=== PATIENT | female | born 1980 | race American Indian/Alaskan Native ===

== ENCOUNTER 2019-12-03 02:26 | Emergency (ER) | payer MEDICAID ==
[2019-12-03] MEDS ORDERED: SODIUM CHLORIDE 0.9% 500 ML 500 ML IV ONE (02:32)
[2019-12-03] MEDS ORDERED: ACETAMINOPHEN 500 MG TAB PO STA (02:33)
[2019-12-03 03:18] LABS: Basophils % (Auto) 0.7 % (0.0-1.8); Eosinophils % (Auto) 0.1 % (0.0-4.3); Hematocrit 38.2 % (30.3-42.9); Hemoglobin 13.1 gm/dl (10.1-14.3); Lymphocytes # (Auto) 0.3 K/mm3 (1.2-5.4); Lymphocytes % (Auto) 6.7 % (13.4-35.0); Mean Corpuscular HGB Conc 34 % (30-34); Mean Corpuscular Volume 86 fl (79-97); Monocytes # (Auto) 0.6 K/mm3 (0.0-0.8); Monocytes % (Auto) 11.3 % (0.0-7.3); Platelet Count 154 K/mm3 (140-440); Red Blood Count 4.47 M/mm3 (3.65-5.03); Red Cell Distribution Width 14.6 % (13.2-15.2)
[2019-12-03 03:25] LABS: INR 1.08 (0.87-1.13)
[2019-12-03 03:28] LABS: Alanine Aminotransferase 9 units/L (7-56); Albumin 4.7 g/dL (3.9-5); BUN/Creatinine Ratio 10; Blood Urea Nitrogen 8 mg/dL (7-17); Calcium 9.2 mg/dL (8.4-10.2); Hemolysis Index 2
--- NOTE | 2019-12-03 03:53 | XRay Report ---
CHEST 1 VIEW INDICATION: possible Sepsis. COMPARISON: None. FINDINGS: Support devices: None. Heart: Normal. Lungs/Pleura: No acute pulmonary or pleural findings. IMPRESSION: 1. No acute findings. Signer Name: Rodolfo Peralta MD Signed: 12/03/2019 3:49 AM Workstation Name: [id number]
--- NOTE | 2019-12-03 04:05 | Emergency Department Report ---
ED General Adult HPI - General Chief complaint: Fever Stated complaint: HEADACHE W/COUGH BODYACHES Time Seen by Provider: 12/03/19 03:25 Source: patient Mode of arrival: Ambulatory Limitations: No Limitations - History of Present Illness Initial comments: Patient is a 38-year-old F [place] female with no significant past medical history who is complaining of 1 day of productive cough fevers and chills. Patient states that she has been sick for the last day. Cough is productive of clear to yellow sputum. Patient is some mild shortness of breath associated with the cough. Patient states the body aches are General and 8 out of 10 in severity. Patient states she feels as though her heart is racing Severity scale (0 -10): 10 - Related Data Previous Rx's Medication Instructions Recorded Last Taken Type Fluticasone [Flonase] 1 spray NS QDAY #1 bottle 12/03/19 Unknown Rx guaiFENesin/CODEINE [Robitussin AC] 5 ml PO Q6HR PRN #100 oral.liqd 12/03/19 Unknown Rx predniSONE [Deltasone] 20 mg PO QDAY #5 tab 12/03/19 Unknown Rx Allergies Allergy/AdvReac Type Severity Reaction Status Date / Time No Known Allergies Allergy Verified 02/27/14 01:40 ED Review of Systems ROS: Stated complaint: HEADACHE W/COUGH BODYACHES Other details as noted in HPI Comment: All other systems reviewed and negative ED Past Medical Hx - Past Medical History Previous Medical History?: No - Surgical History Past Surgical History?: No - Social History Smoking Status: Never Smoker Substance Use Type: None - Medications Home Medications: Home Medications Medication Instructions Recorded Confirmed Last Taken Type Fluticasone [Flonase] 1 spray NS QDAY #1 bottle 12/03/19 Unknown Rx guaiFENesin/CODEINE [Robitussin AC] 5 ml PO Q6HR PRN #100 oral.liqd 12/03/19 Unknown Rx predniSONE [Deltasone] 20 mg PO QDAY #5 tab 12/03/19 Unknown Rx ED Physical Exam - General Limitations: No Limitations General appearance: alert, in no apparent distress - Head Head exam: Present: atraumatic, normocephalic - Eye Eye exam: Present: normal appearance - ENT ENT exam: Present: mucous membranes moist - Neck Neck exam: Present: normal inspection - Respiratory Respiratory exam: Present: rhonchi. Absent: respiratory distress, wheezes, rales - Cardiovascular Cardiovascular Exam: Present: regular rate, normal rhythm, tachycardia. Absent: normal heart sounds, systolic murmur, diastolic murmur, rubs, gallop - GI/Abdominal GI/Abdominal exam: Present: soft, normal bowel sounds. Absent: distended, tende rness, guarding, rebound - Extremities Exam Extremities exam: Present: normal inspection - Back Exam Back exam: Present: normal inspection - Neurological Exam Neurological exam: Present: alert, oriented X3 - Psychiatric Psychiatric exam: Present: normal affect, normal mood - Skin Skin exam: Present: warm, dry, intact, normal color. Absent: rash ED Course Vital Signs 12/03/19 12/03/19 12/03/19 02:28 03:05 03:15 Temperature 102.5 F H Pulse Rate 135 H 108 H Respiratory 18 20 Rate Blood Pressure 152/85 127/83 O2 Sat by Pulse 96 97 97 Oximetry 12/03/19 12/03/19 03:30 03:39 Temperature 99.5 F Pulse Rate 107 H Respiratory 14 Rate Blood Pressure 118/60 O2 Sat by Pulse 97 Oximetry ED Medical Decision Making - Lab Data Result diagrams: 12/03/19 02:49 12/03/19 02:49 Lab Results 12/03/19 12/03/19 12/03/19 Range/Units 02:49 02:49 02:49 WBC 5.0 (4.5-11.0) K/mm3 RBC 4.47 (3.65-5.03) M/mm3 Hgb 13.1 (10.1-14.3) gm/dl Hct 38.2 (30.3-42.9) % MCV 86 (79-97) fl MCH 29 (28-32) pg MCHC 34 (30-34) % RDW 14.6 (13.2-15.2) % Plt Count 154 (140-440) K/mm3 Lymph % (Auto) 6.7 L (13.4-35.0) % [place] % (Auto) 11.3 H (0.0-7.3) % Eos % (Auto) 0.1 (0.0-4.3) % Baso % (Auto) 0.7 (0.0-1.8) % Lymph # 0.3 L (1.2-5.4) K/mm3 [place] # 0.6 (0.0-0.8) K/mm3 Eos # 0.0 (0.0-0.4) K/mm3 Baso # 0.0 (0.0-0.1) K/mm3 Seg Neutrophils % 81.2 H (40.0-70.0) % Seg Neutrophils # 4.1 (1.8-7.7) K/mm3 PT 14.1 (12.2-14.9) Sec. INR 1.08 (0.87-1.13) VBG pH (7.320-7.420) Sodium 140 (137-145) mmol/L Potassium 3.3 L (3.6-5.0) mmol/L Chloride 101.4 (98-107) mmol/L Carbon Dioxide 25 (22-30) mmol/L Anion Gap 17 mmol/L BUN 8 (7-17) mg/dL Creatinine 0.8 (0.7-1.2) mg/dL Estimated GFR > 60 ml/min BUN/Creatinine Ratio 10 % Glucose 123 H (65-100) mg/dL Lactic Acid (0.7-2.0) mmol/L Calcium 9.2 (8.4-10.2) mg/dL Total Bilirubin 1.10 (0.1-1.2) mg/dL AST 18 (5-40) units/L ALT 9 (7-56) units/L Alkaline Phosphatase 47 (35-129) units/L Total Protein 7.7 (6.3-8.2) g/dL Albumin 4.7 (3.9-5) g/dL Albumin/Globulin Ratio 1.6 % HCG, Qual (Negative) 12/03/19 12/03/19 12/03/19 Range/Units 02:49 02:49 02:49 WBC (4.5-11.0) K/mm3 RBC (3.65-5.03) M/mm3 Hgb (10.1-14.3) gm/dl Hct (30.3-42.9) % MCV (79-97) fl MCH (28-32) pg MCHC (30-34) % RDW (13.2-15.2) % Plt Count (140-440) K/mm3 Lymph % (Auto) (13.4-35.0) % [place] % (Auto) (0.0-7.3) % Eos % (Auto) (0.0-4.3) % Baso % (Auto) (0.0-1.8) % Lymph # (1.2-5.4) K/mm3 [place] # (0.0-0.8) K/mm3 Eos # (0.0-0.4) K/mm3 Baso # (0.0-0.1) K/mm3 Seg Neutrophils % (40.0-70.0) % Seg Neutrophils # (1.8-7.7) K/mm3 PT (12.2-14.9) Sec. INR (0.87-1.13) VBG pH 7.347 (7.320-7.420) Sodium (137-145) mmol/L Potassium (3.6-5.0) mmol/L Chloride (98-107) mmol/L Carbon Dioxide (22-30) mmol/L Anion Gap mmol/L BUN (7-17) mg/dL Creatinine (0.7-1.2) mg/dL Estimated GFR ml/min BUN/Creatinine Ratio % Glucose (65-100) mg/dL Lactic Acid 1.60 (0.7-2.0) mmol/L Calcium (8.4-10.2) mg/dL Total Bilirubin (0.1-1.2) mg/dL AST (5-40) units/L ALT (7-56) units/L Alkaline Phosphatase (35-129) units/L Total Protein (6.3-8.2) g/dL Albumin (3.9-5) g/dL Albumin/Globulin Ratio % HCG, Qual Negative (Negative) - EKG Data -: EKG Interpreted by [place] EKG shows normal: sinus rhythm, axis, intervals, QRS complexes, ST-T waves Rate: tachycardia - Radiology Data CHEST 1 VIEW INDICATION: possible Sepsis. COMPARISON: None. FINDINGS: Support devices: None. Heart: Normal. Lungs/Pleura: No acute pulmonary or pleural findings. IMPRESSION: 1. No acute findings. Signer Name: Rodolfo Peralta MD Signed: 12/03/2019 3:49 AM Workstation Name: [id number] - Medical Decision Making On arrival the patient had a high fever was tachycardic and met our sepsis protocol. Patient was hydrated and her heart rate did improve. Patient has not had much to eat or drink in the last 24 hours. Patient's fever was treated. X-ray shows no evidence of pneumonia. Patient likely with acute bronchitis the patient will be discharged home with medication for symptomatic relief. Critical care attestation.: If time is entered above; I have spent that time in minutes in the direct care of this critically ill patient, excluding procedure time. ED Disposition Clinical Impression: Acute bronchitis Disposition: DC-01 TO HOME OR SELFCARE Is pt being admited?: No Does the pt Need Aspirin: No Condition: Stable Instructions: Acute Bronchitis (ED) Referrals: RODGER DONALDSON MD [Primary Care Provider] - 3-5 Days Time of Disposition: 04:05
[2019-12-03 04:15] VITALS: BP 122/76
== END 2019-12-03 04:24 | disposition home or self-care (01) ==
LOC: ED 02:26
DX: J40 Bronchitis, not specified as acute or chronic (principal); Z79.899 Other long term (current) drug therapy
CPT/HCPCS: 36415; 71045; 80053; 82140; 82805; 84703; 85025; 85610; 93005; 93010; 99284; J7040

== ENCOUNTER 2021-09-23 10:37 | Emergency (ER) | payer MEDICAID ==
[2021-09-23] MEDS ORDERED: ACETAMINOPHEN 325 MG TAB PO ONE (11:24)
--- NOTE | 2021-09-23 11:25 | Emergency Department Report ---
Minor Respiratory - [facility] Chief Complaint: Upper Respiratory Infection Stated Complaint: COLD AND CONGESTION Time Seen by Provider: 09/23/21 11:10 Duration: 1 Day Severity: mild Minor Respiratory: Yes Able to Tolerate Fluids, Yes Cough, Yes Fever, No Rhinorrhea, No Sore Throat, No Ear Pain, No Sick Contacts, No Hemoptysis, No Chest Pain, No Shortness of Breath Other History: 40-year-old -[place] female presents to the emergency room for 1 day history of headache chills body aches scratchy throat cough. She is vaccinated completely. She is not recently tested for Covid. She denies any past medical history. She states she did take Tylenol PM last night. ED Review of Systems ROS: Stated complaint: COLD AND CONGESTION Other details as noted in HPI ED Past Medical Hx - Past Medical History Additional medical history: BRONCHITIS - Surgical History Past Surgical History?: No - Social History Smoking Status: Never Smoker Substance Use Type: None - Medications Home Medications: Home Medications Medication Instructions Recorded Confirmed Last Taken Type Fluticasone [Flonase] 1 spray NS QDAY #1 bottle 12/03/19 Unknown Rx guaiFENesin/CODEINE [Robitussin AC] 5 ml PO Q6HR PRN #100 oral.liqd 12/03/19 Unknown Rx predniSONE [Deltasone] 20 mg PO QDAY #5 tab 12/03/19 Unknown Rx Minor Respiratory Exam - Exam General: Vital signs noted. No distress. Alert and acting appropriately. HEENT: Yes Moist Mucous Membranes, No Pharyngeal Erythema, No Pharyngeal Exudates, No Rhinorrhea, No Conjuctival Injection, No Frontal Tenderness, No Maxillary Tenderness Ear: Neither TM Bulge, Neither TM Erythema, Neither EAC Pain, Neither EAC Discharge Neck: Yes Supple, No Adenopathy Lungs: Yes Good Air Exchange, No Wheezes, No [place], No Stridor, No Cough, No Labored Respirations, No Retractions, No Use of Accessory Muscles, No Other Abnormal Lung Sounds Heart: Yes Regular, No Murmur Abdomen: Yes Normal Bowel Sounds, No Tenderness, No Peritoneal Signs Skin: No Rash, No Edema Neurologic: Alert and oriented, no deficits. Musculoskeletal: Unremarkable. ED Course Vital Signs 09/23/21 10:43 Temperature 100.4 F H Pulse Rate 118 H Respiratory 18 Rate Blood Pressure 140/72 O2 Sat by Pulse 100 Oximetry ED Medical Decision Making - Lab Data Lab Results 09/23/21 Range/Units 11:21 Influenza A (Rapid) Negative (Negative) Influenza B (Rapid) Negative (Negative) - Radiology Data Radiology results: report reviewed Study Comments [facility] [address] [place] [address] XRay Report Signed Patient: ADAM ADAMS MR#: [id number] : 1980 Acct:[id number] Age/Sex: 40 / F ADM Date: 09/23/21 Loc: ED Attending Dr: Ordering Physician: ANITA HENLEY Date of Service: 09/23/21 Procedure(s): XR chest routine 2V Accession Number(s): [id number] cc: ANITA HENLEY Fluoro Time In Minutes: XR chest routine 2V INDICATION / CLINICAL INFORMATION: fever, cough COMPARISON: None available. FINDINGS: SUPPORT DEVICES: None. HEART / MEDIASTINUM: No significant abnormality. LUNGS / PLEURA: Lungs are clear. Costophrenic sulci are sharp. No pneumothorax. ADDITIONAL FINDINGS: No significant additional findings. IMPRESSION: 1. No acute findings. Signer Name: Dami Lomax MD Signed: 09/23/2021 12:58 PM Workstation Name: [id number] Transcribed By: CS Dictated By: Dami Lomax MD Electronically Authenticated By: Dami Lomax MD Signed Date/Time: 09/23/21 125 DD/ 125 TD/TT: - Medical Decision Making 40-year-old -[place] female presents to the emergency room for 1 day history of headache chills body aches scratchy throat cough. She is vaccinated completely. She is not recently tested for Covid. She denies any past medical history. She states she did take Tylenol PM last night.. Rapid flu, test and chest x-ray has been ordered. Critical care attestation.: If time is entered above; I have spent that time in minutes in the direct care of this critically ill patient, excluding procedure time. ED Disposition Clinical Impression: Suspected COVID-19 virus infection Disposition: HOME / SELF CARE / HOMELESS Is pt being admited?: No Does the pt Need Aspirin: No Condition: Stable Instructions: Prevent the Spread of COVID-19 if You Are Sick - CDC, COVID-19: How to Protect Yourself and Others - CDC Additional Instructions: Your symptoms appear most consistent with a nonspecific viral syndrome. However, given this current pandemic, COVID-19 is in the differential of possibilities. Despite your previous negative COVID-19 test, I do recommend repeat outpatient Covid 19 testing. In the meantime, isolate/quarantine yourself and stay away from anyone who is elderly, immunocompromised or chronically ill. You can use ibuprofen every 6-8 hours and Tylenol every 4-8 hours, using the dosing on the back of the bottle, as needed for any fever or body aches. Return to the emergency department with any worsening of your symptoms, development of chest pain or shortness of breath, or with any acute distress. Flu test negative chest x-ray negative Referrals: PRIMARY CARE, [Primary Care Provider] - 3-5 Days CONSTANZA DUPREE MD [Staff Physician] - 3-5 Days Forms: Work/School Release Form(ED)
--- NOTE | 2021-09-23 13:02 | XRay Report ---
XR chest routine 2V INDICATION / CLINICAL INFORMATION: fever, cough COMPARISON: None available. FINDINGS: SUPPORT DEVICES: None. HEART / MEDIASTINUM: No significant abnormality. LUNGS / PLEURA: Lungs are clear. Costophrenic sulci are sharp. No pneumothorax. ADDITIONAL FINDINGS: No significant additional findings. IMPRESSION: 1. No acute findings. Signer Name: Dami Lomax MD Signed: 09/23/2021 12:58 PM Workstation Name: [id number]
[2021-09-23 14:26] VITALS: BP 112/70
== END 2021-09-23 14:26 | disposition home or self-care (01) ==
LOC: ED 10:37
DX: R51.9 Headache, unspecified (principal); M79.18 Myalgia, other site; Z20.822 Contact with and (suspected) exposure to COVID-19; R05.9 Cough, unspecified
CPT/HCPCS: 36415; 71046; 84703; 87400; 99283